=== PATIENT | male | born 1995 | race Hispanic/Latino ===

== ENCOUNTER 2022-03-09 20:18 | Emergency (ER) | payer SELFPAY ==
[~2022-03-09] VITALS: Ht 121.9 cm; Wt 58.8 kg
[2022-03-09 21:10] VITALS: BP 129/90
[2022-03-09 21:15] VITALS: BP 109/73
[2022-03-09 21:30] VITALS: BP 126/81
[2022-03-09 21:45] VITALS: BP 116/67
[2022-03-09 21:45] LABS: HEMOGLOBIN 12.7 g/dl (14.0-18.0); IMMATURE GRANULOCYTES 0.1 % (0.0-5.0); MEAN CELL VOLUME 87.9 fL CALC (80.0-100.0); MEAN CORPUSCULAR HGB 30.2 pG CALC (26.0-32.0); MEAN CORPUSCULAR HGB CONC 34.3 g/dL CAL (32.0-36.0); NEUT# 4.47 thou/uL (1.82-7.42); RED BLOOD COUNT 4.21 mill/uL (4.70-6.10); RED CELL DISTRI WIDTH 12.4 % (11.5-15.5)
[2022-03-09 22:00] VITALS: BP 120/73
[2022-03-09 22:02] LABS: ALBUMIN 4.5 g/dL (3.2-5.0); ALKALINE PHOSPHATASE 126 u/l (38-126); ANION GAP 14 (6-22 (CALC)); BILIRUBIN, TOTAL 0.2 mg/dL (0.0-1.4); BUN 17 mg/dL (9-20); BUN/CREATININE RATIO 20 (12-20 (CALC)); CARBON DIOXIDE 24 mmol/l (22-30); CHLORIDE 107 mmol/l (95-108); CREATININE 0.9 mg/dL (0.7-1.3); GFR FOR AFR.AMER. > 60 ML/MIN (>=60 (CALC)); GFR OTHER RACES > 60 ML/MIN (>=60 (CALC)); POTASSIUM 3.6 mmol/l (3.5-5.1); SGOT/AST 32 u/l (17-59); SODIUM 141 mmol/l (137-146)
[2022-03-09] MEDS ORDERED: KEFLEX500 MG PO (23:24)
[2022-03-09] MEDS ORDERED: NAPROXEN500 MG PO (23:24)
[2022-03-09 23:57] VITALS: BP 120/70
== END 2022-03-09 23:57 | disposition home or self-care (01) | DRG 603 ==
LOC: ED 20:18
PROVIDERS: Emergency Medicine
DX: L03.116 Cellulitis of left lower limb (principal)